=== PATIENT | female | born 1955 | race Caucasian/White ===

== ENCOUNTER → 2017-11-25 | Outpatient (CLI) | payer BC ==
--- NOTE | 2017-11-26 08:34 | MM ---
Reason for exam: screening (asymptomatic). Last mammogram was performed 2 years and 8 months ago. History: Patient is postmenopausal. Physical Findings: A clinical breast exam by your physician is recommended on an annual basis and results should be correlated with mammographic findings. MG Screening Mammo w CAD Bilateral CC and MLO view(s) were taken. Prior study comparison: March 16, 2015, bilateral MG screening mammo w CAD. December 15, 2012, bilateral digital screening mammo w/CAD. The breast tissue is heterogeneously dense. This may lower the sensitivity of mammography. No significant changes when compared with prior studies. ASSESSMENT: Negative, BI-RAD 1 RECOMMENDATION: Routine screening mammogram of both breasts in 1 year.
== END ==
LOC: RADMAMWWP 06:54
PROVIDERS: ATTEND Family Medicine
DX: Z12.31 Encounter for screening mammogram for malignant neoplasm of breast (principal)
CPT/HCPCS: 77067

== ENCOUNTER → 2017-12-23 | Outpatient (CLI) | payer BC ==
--- NOTE | 2017-12-23 19:04 | BD ---
EXAMINATION TYPE: Axial Bone Density DATE OF EXAM: 12/23/2017 COMPARISON: NONE CLINICAL HISTORY: 62-year-old female screening for osteoporosis Height: 63 Weight: 155.5 FRAX RISK QUESTIONS: Alcohol (3 or more units per day): no Family History (Parent hip fracture): no Glucocorticoids (More than 3mos): no (Ex: prednisone, prednisolone, methylprednisolone, dexamethasone, and hydrocortisone). History of Fracture in Adulthood: no Secondary Osteoporosis: 1. Type 1 Diabetes: no 2. Hyperthyroidism: no 3. Menopause before 45: no 4. Malnutrition: no 5. Chronic liver disease: no Rheumatoid Arthritis: no Current Tobacco Use: no RISK FACTORS HISTORY OF: Family History of Osteoporosis: no Active: yes Diet low in dairy products/other sources of calcium: yes Postmenopausal woman: age 36 hysterectomy Lost more than 2 inches in height since high school: no MEDICATIONS: x2 bp meds Thyroid Medications: Western Thyroid How Lon years Additional History: EXAM MEASUREMENTS: Bone mineral densitometry was performed using the [employer] System. Bone mineral density as measured about the Lumbar spine is: ----- L1-L4(G/cm2): 1.206 T Score Values are as follows: ----- L2: 0.0 ----- L3: 0.4 ----- L4: 0.5 ----- L1-L4: 0.2 Bone mineral density has: decreased -2.7 % since study of: 12.15.2012 Bone mineral density about the R hip (g/cm2): 0.861 Bone mineral density about the L hip (g/cm2): 0.883 T Score values are as follows: -----R Neck: -1.3 -----L Neck: -1.1 -----R Total: -1.0 -----L Total: -0.7 Bone mineral density has: decreased -3.3 % since study of: 12.15.2012 IMPRESSION: Osteopenia (T Score between -2.5 and -1). There is slightly increased risk of fracture and the patient may be considered for treatment. Re-Screen 2-5 years. NOTE: T-SCORE=SD OF THE YOUNG ADULT MEAN.
== END ==
LOC: RADBDWWP 10:27
PROVIDERS: ATTEND Family Medicine
DX: Z13.820 Encounter for screening for osteoporosis (principal); M85.80 Other specified disorders of bone density and structure, unspecified site
CPT/HCPCS: 77080

== ENCOUNTER → 2018-10-02 | Outpatient (CLI) | payer BC ==
--- NOTE | 2018-10-02 09:41 | CT ---
EXAMINATION TYPE: CT heart w calcium score DATE OF EXAM: 10/02/2018 COMPARISON: None. HISTORY: Screening for cardiovascular disorder. 213.9 CT DLP: 44.8 mGycm Automated exposure control for dose reduction was used. CT CALCIUM SCORING Coronary calcium is a marker for plaque (fatty deposits) in a blood vessel or atherosclerosis (harden ing of the arteries). The presence and amount of calcium detected in a coronary artery by the CT sca n, indicates the presence and amount of atherosclerotic plaque. These calcium deposits appear years before the development of heart disease symptoms such as chest pain and shortness of breath. A calcium score is computed for each of the coronary arteries based upon the volume and density of th e calcium deposits. This can be referred to as your calcified plaque burden. It does not correspond directly to the percentage of narrowing in the artery but does correlate with the severity of the un derlying coronary atherosclerosis. PROCEDURE TECHNIQUE - Prospective Gating was used. Slice thickness: 3mm. Density threshold (HU): 130, Pixel threshold: 3, Algorithm: discrete. RESULTS Region: LM Calcium Score ([place]): 0 Volume (mm3): 0 Mass (g): 0 Region: RCA Calcium Score ([place]): 68.1 Volume (mm3): 55.21 Mass (g): 18.4 Region: LAD Calcium Score ([place]): 2.21 Volume (mm3): 3.31 Mass (g): 1.1 Region: CX Calcium Score ([place]): 0 Volume (mm3): 0 Mass (g): 0 Region: PDA Calcium Score ([place]): 0 Volume (mm3): 0 Mass (g): 0 Total: Calcium Score ([place]): 70.31 Volume (mm3): 19.51 Mass (g): 58.53 TOTAL CALCIUM SCORE: 70 No suspicious incidental findings noted. IMPRESSION: Calcium Score: 11-100 Implication: Definite, at least mild atherosclerotic plaque Risk of Coronary Artery Disease: Mild or minimal coronary narrowings likely. CALCIUM SCORE IMPLICATION RISK OF C ORONARY ARTERY DISEASE 0 No identifiable plaque Very low, generally less than 5% 1-10 Minimal identifiable plaque Very unlikely, less than 10% 11-100 Definite, at least mild atherosclerotic plaque Mild or m inimal coronary narrowings likely 101-400 Definite, at least moderate atherosclerotic plaque Mild coronary ar luis antonio disease highly likely, significant narrowing possible 401 or Higher Extensive atherosclerotic plaque High lik elihood of at least one significant coronary narrowing
== END ==
LOC: RADCTMAIN 08:46
PROVIDERS: ATTEND Family Medicine
DX: E78.2 Mixed hyperlipidemia (principal)
CPT/HCPCS: 75571

== ENCOUNTER 2020-05-16 17:03 | Observation (INO) | payer BC, MEDICARE ==
[2020-05-16] MEDS ORDERED: hydrALAZINE HCL 20 MG/ML 1 ML VIAL IVP STA (18:40)
--- NOTE | 2020-05-16 18:49 | ED ---
General Adult HPI - General Chief complaint: Recheck/Abnormal Lab/Rx Stated complaint: High BP Time Seen by Provider: 05/16/20 17:05 Source: patient, RN notes reviewed, old records reviewed Mode of arrival: wheelchair Limitations: no limitations - History of Present Illness Initial comments: This is a 64-year-old female in the emergency department complaining of high blood pressure and some chest pressure as well as some right-sided jaw and ear pain. Patient states this is similar chest pressure that she's been getting on and off for years. Patient states she currently is experiencing chest pressure. Patient denies any difficulty breathing shortness of breath per patient denies any headache patient denies any blurred vision. Patient blood pressure cuff at home said her blood pressure was elevated but also said she might have an irregular heartbeat she called her primary medical care doctor and they recommended she come to the emergency department. Patient denies any recent fever chills or cough per patient denies any abdominal pain patient denies nausea vomiting or diarrhea per patient denies any swelling to legs or calf tenderness. - Related Data Home Medications Medication Instructions Recorded Confirmed Losartan/Hydrochlorothiazide 1 tab PO DAILY 05/16/20 05/16/20 [Losartan-Hctz 100-25 mg Tab] Thyroid,Pork [[place] Thyroid] 15 mg PO HS 05/16/20 05/16/20 Thyroid,Pork [[place] Thyroid] 30 mg PO DAILY 05/16/20 05/16/20 Allergies Allergy/AdvReac Type Severity Reaction Status Date / Time No Known Allergies Allergy Verified 05/16/20 19:41 Review of Systems ROS Statement: Those systems with pertinent positive or pertinent negative responses have been documented in the HPI. ROS Other: All systems not noted in ROS Statement are negative. Past Medical History Past Medical History: Hypertension History of Any Multi-Drug Resistant Organisms: None Reported Past Surgical History: Hysterectomy Past Psychological History: No Psychological Hx Reported Smoking Status: Never smoker Past Alcohol Use History: Occasional Past Drug Use History: None Reported General Exam - General Exam Comments Initial Comments: GENERAL: Patient is well-developed and well-nourished. Patient is nontoxic and well- hydrated and is in mild distress. ENT: Neck is soft and supple. No significant lymphadenopathy is noted. Oropharynx is clear. Moist mucous membranes. Neck has full range of motion without eliciting any pain. EYES: The sclera were anicteric and conjunctiva were pink and moist. Extraocular movements were intact and pupils were equal round and reactive to light. Eyelids were unremarkable. PULMONARY: Unlabored respirations. Good breath sounds bilaterally. No audible rales rhonchi or wheezing was noted. CARDIOVASCULAR: There is a regular rate and rhythm without any murmurs gallops or rubs. ABDOMEN: Soft and nontender with normal bowel sounds. SKIN: Skin is clear with no lesions or rashes and otherwise unremarkable. NEUROLOGIC: Patient is alert and oriented x3. Cranial nerves II through XII are grossly i ntact. Motor and sensory are also intact. Normal speech, volume and content. Symmetrical smile. MUSCULOSKELETAL: Normal extremities with adequate strength and full range of motion. No lower extremity swelling or edema. No calf tenderness. LYMPHATICS: No significant lymphadenopathy is noted PSYCHIATRIC: Normal psychiatric evaluation. Limitations: no limitations Course Vital Signs 05/16/20 17:04 Temperature 97.9 F Pulse Rate 76 Respiratory 18 Rate Blood Pressure 167/94 O2 Sat by Pulse 97 Oximetry Medical Decision Making - Medical Decision Making EKG shows normal sinus rhythm at 64 bpm MD interval 170 QRS is 72 QT interval 366 QTC is 377. Patient's EKG shows no ST segment elevation or depression. Chest x-ray shows no acute abnormality. I went back into the room to reevaluate the patient and she no longer had any chest pain but she was concerned because of the significant family history she had slight admitted the patient consult cardiology [facility] Data Result diagrams: 05/16/20 18:53 05/16/20 18:53 Lab Results 05/16/20 05/16/20 05/16/20 Range/Units 18:53 18:53 18:53 WBC 9.2 (3.8-10.6) k/uL RBC 4.83 (3.80-5.40) m/uL Hgb 14.1 (11.4-16.0) gm/dL Hct 41.8 (34.0-46.0) % MCV 86.5 (80.0-100.0) fL MCH 29.2 (25.0-35.0) pg MCHC 33.7 (31.0-37.0) g/dL RDW 12.9 (11.5-15.5) % Plt Count 275 (150-450) k/uL MPV 7.8 Neutrophils % 59 % Lymphocytes % 34 % Monocytes % 3 % Eosinophils % 3 % Basophils % 1 % Neutrophils # 5.4 (1.3-7.7) k/uL Lymphocytes # 3.1 (1.0-4.8) k/uL Monocytes # 0.3 (0-1.0) k/uL Eosinophils # 0.2 (0-0.7) k/uL Basophils # 0.1 (0-0.2) k/uL PT 10.2 (9.0-12.0) sec INR 1.0 (<1.2) APTT 22.3 (22.0-30.0) sec Sodium 138 (137-145) mmol/L Potassium 3.1 L (3.5-5.1) mmol/L Chloride 101 (98-107) mmol/L Carbon Dioxide 28 (22-30) mmol/L Anion Gap 9 mmol/L BUN 18 H (7-17) mg/dL Creatinine 0.66 (0.52-1.04) mg/dL Est GFR (CKD-EPI)AfAm >90 (>60 ml/min/1.73 sqM) Est GFR (CKD-EPI)NonAf >90 (>60 ml/min/1.73 sqM) Glucose 111 H (74-99) mg/dL Calcium 10.0 (8.4-10.2) mg/dL Magnesium 1.8 (1.6-2.3) mg/dL Total Bilirubin 0.5 (0.2-1.3) mg/dL AST 31 (14-36) U/L ALT 32 (4-34) U/L Alkaline Phosphatase 61 (38-126) U/L Troponin I (0.000-0.034) ng/mL Total Protein 7.3 (6.3-8.2) g/dL Albumin 4.7 (3.5-5.0) g/dL 05/16/20 Range/Units 18:53 WBC (3.8-10.6) k/uL RBC (3.80-5.40) m/uL Hgb (11.4-16.0) gm/dL Hct (34.0-46.0) % MCV (80.0-100.0) fL MCH (25.0-35.0) pg MCHC (31.0-37.0) g/dL RDW (11.5-15.5) % Plt Count (150-450) k/uL MPV Neutrophils % % Lymphocytes % % Monocytes % % Eosinophils % % Basophils % % Neutrophils # (1.3-7.7) k/uL Lymphocytes # (1.0-4.8) k/uL Monocytes # (0-1.0) k/uL Eosinophils # (0-0.7) k/uL Basophils # (0-0.2) k/uL PT (9.0-12.0) sec INR (<1.2) APTT (22.0-30.0) sec Sodium (137-145) mmol/L Potassium (3.5-5.1) mmol/L Chloride (98-107) mmol/L Carbon Dioxide (22-30) mmol/L Anion Gap mmol/L BUN (7-17) mg/dL Creatinine (0.52-1.04) mg/dL Est GFR (CKD-EPI)AfAm (>60 ml/min/1.73 sqM) Est GFR (CKD-EPI)NonAf (>60 ml/min/1.73 sqM) Glucose (74-99) mg/dL Calcium (8.4-10.2) mg/dL Magnesium (1.6-2.3) mg/dL Total Bilirubin (0.2-1.3) mg/dL AST (14-36) U/L ALT (4-34) U/L Alkaline Phosphatase (38-126) U/L Troponin I <0.012 (0.000-0.034) ng/mL Total Protein (6.3-8.2) g/dL Albumin (3.5-5.0) g/dL Disposition Clinical Impression: Chest pain, Hypertensive urgency Disposition: ADMITTED IP TO THIS HOSP Referrals: Gayle Sargent DO [Primary Care Provider] - 1-2 days Time of Disposition: 19:50
[2020-05-16 19:05] LABS: Basophils # (A) 0.1 k/uL (0-0.2); Basophils % (A) 1 %; Eosinophils # (A) 0.2 k/uL (0-0.7); Eosinophils % (A) 3 %; HCT 41.8 % (34.0-46.0); HGB 14.1 gm/dL (11.4-16.0); Lymphocytes # (A) 3.1 k/uL (1.0-4.8); Lymphocytes % (A) 34 %; MCH 29.2 pg (25.0-35.0); MCHC 33.7 g/dL (31.0-37.0); MCV 86.5 fL (80.0-100.0); Mean Platelet Volume 7.8; Monocytes # (A) 0.3 k/uL (0-1.0); Monocytes % (A) 3 %; Neutrophils # (A) 5.4 k/uL (1.3-7.7); Neutrophils % (A) 59 %; Platelet Count 275 k/uL (150-450); RBC 4.83 m/uL (3.80-5.40); RDW 12.9 % (11.5-15.5); WBC 9.2 k/uL (3.8-10.6)
[2020-05-16 19:12] LABS: Partial Thromboplastin Time 22.3 sec (22.0-30.0); Prothrombin Time 10.2 sec (9.0-12.0)
--- NOTE | 2020-05-16 19:18 | XR ---
EXAMINATION TYPE: XR chest 2V DATE OF EXAM: 05/16/2020 COMPARISON: 03/27/2013. HISTORY: Chest pain. Elevated blood pressure for one week. TECHNIQUE: Frontal and lateral views of the chest are obtained. FINDINGS: There is no focal air space opacity, pleural effusion, or pneumothorax seen. The cardiac silhouette size is within normal limits. The osseous structures are intact. There is a nodule in the right upper lobe laterally measuring 2 cm and is new compared to his x-rays from 03/27/2013. This could be superimposition artifact. Follow-up chest x-ray in 2-4 weeks is recomme nded. IMPRESSION: No acute cardiopulmonary process. Follow-up as noted above.
[2020-05-16 19:23] LABS: ALT 32 U/L (4-34); AST 31 U/L (14-36); African American GFR (CKD) >90 (>60 ml/min/1.73 sqM); Albumin 4.7 g/dL (3.5-5.0); Alkaline Phosphatase 61 U/L (38-126); Anion Gap 9 mmol/L; Blood Urea Nitrogen 18 mg/dL (7-17); Carbon Dioxide 28 mmol/L (22-30); Chloride 101 mmol/L (98-107); Glucose 111 mg/dL (74-99); Magnesium 1.8 mg/dL (1.6-2.3); Non-African American GFR(CKD) >90 (>60 ml/min/1.73 sqM); Potassium 3.1 mmol/L (3.5-5.1); Sodium 138 mmol/L (137-145); Total Bilirubin 0.5 mg/dL (0.2-1.3); Total Protein 7.3 g/dL (6.3-8.2)
[2020-05-16] MEDS ORDERED: ASPIRIN 81 MG PO STA (19:46)
[2020-05-16] MEDS ORDERED: NITROGLYCERIN OINT 1 INCH/GM PACKET TOPICAL STA (19:47)
[2020-05-16] MEDS ORDERED: NITROGLYCERIN SL TABS 0.4 MG TAB SUBLINGUAL PRN (19:47)
[2020-05-16] MEDS: NITROGLYCERIN OINT 1 INCH/GM PACKET TOPICAL SCH (22:43)
[2020-05-17 03:07] LABS: Cholesterol 306 mg/dL (<200); HDL Cholesterol 77 mg/dL (40-60); LDL Cholesterol,Calculated 206 mg/dL (0-99); Triglycerides 117 mg/dL (<150)
[2020-05-17] MEDS: NITROGLYCERIN OINT 1 INCH/GM PACKET TOPICAL SCH (04:04)
[2020-05-17] MEDS ORDERED: Potassium Replacement Protocol 1 EACH MISC MISCELLANE PRN (07:07)
[2020-05-17 07:27] VITALS: RESP 16
[2020-05-17] MEDS: POTASSIUM CHLORIDE ER 20 MEQ TAB.ER PO SCH ×2 (08:48→09:27)
[2020-05-17] MEDS: ATORVASTATIN 80 MG TAB PO SCH ×2 (08:49→08:55)
[2020-05-17] MEDS ORDERED: THYROID, PORK 30 MG TAB PO SCH ×2 (09:00→21:00)
[2020-05-17] MEDS ORDERED: ASPIRIN 81 MG PO SCH (09:00)
[2020-05-17] MEDS ORDERED: LOSARTAN-HCTZ 50-12.5 MG 1 EACH TAB PO SCH (09:00)
[2020-05-17] MEDS ORDERED: ASPIRIN 325 MG TAB PO SCH (09:00)
--- NOTE | 2020-05-17 11:44 | P.CRDCN ---
History of Present Illness History of present illness: HISTORY OF PRESENTING ILLNESS This is a pleasant 64-year-old patient female past medical history significant for former smoker (used 2PPD x 25 years), hypertension. She follows in the office with Dr. Singletary. We have been asked to see in consultation for chest pressure. Patient is seen and examined at bed side, walking in room, no apparent distress. Patient states yesterday at 3 PM she felt "shaky", checked her blood pressure and it was 180s / 90s. She called her primary care provider who told her to go to the emergency department. She also had right-sided chest pressure, middle back pressure, right ear pressure. Her chest pressure is nonradiating, not associated with exertion, nothing made the pressure worse or better and subsided on her own. She's had this chest pressure before and felt similar. last week patient's and her blood pressure was 150/90, but improved after she took her antihypertensives. She checks her blood pressure at home and usually runs 130s/90s. She denies chest pain, palpitations, shortness of breath, lower extremity edema, fatigue, weakness, lightheadedness, syncope. She denies history of diabetes, [place], or stroke. She denies tobacco use, alcohol, or illict drug use. She denies symptoms of orthopnea or PND. Patients states she is compliant with medication. Laboratory data reviewed, troponins negative 3, triglycerides 117, cholesterol 306, LDL 206, HDL 77 WBC 9.2, hemoglobin 14.1 platelets 275, sodium 138, potassium 3.1, renal function stable creatinine 0.66 Vital signs blood pressure 105/70, heart rate 85, oxygen saturations 96 on room air, afebrile Current home cardiac medications include losartanhydrochlorothiazide 97558- 1 tablet daily. DIAGNOSTICS EKG reveals normal sinus rhythm heart rate 64, T wave inversion in lead III. . No prior EKG to compare Last Cardiac Catheterization 04/06/2013normal filling pressures, no significant obstructive disease Echo 07/03/2018EF 55% no evidence of any diastolic dysfunction. No significant pulmonary hypertension Stress echo 07/28/2018EKGs changes of ST segment depressions similar on 2017. No ischemia on stress echo Telemetry tracings indicate sinus mechanism Chest xray no acute cardiopulmonary process, nodule in the right upper lobe laterally- new compared to xrays in 2014. Could be superimposition artifact- follow up chest xray in 2-4weeks is recommended . REVIEW OF SYSTEMS At the time of my exam: CONSTITUTIONAL: Denies fever or chills. CARDIOVASCULAR: +chest pressure Denies chest pain, shortness of breath, orthopnea, PND or palpitations. RESPIRATORY: Denies cough. GASTROINTESTINAL: Denies abdominal pain, diarrhea, constipation, nausea or vomiting. MUSCULOSKELETAL: +mid back pressure Denies myalgias. NEUROLOGIC: + right ear pressure Denies numbness, tingling, headacbe or weakness. ENDOCRINE: Denies fatigue, weight change, polydipsia or polyurina. GENITOURINARY: Denies burning, hematuria or urgency with micturation. HEMATOLOGIC: Denies history of anemia or bleeding. PHYSICAL EXAMINATION CONSTITUTIONAL: No apparent distress. HEENT: Head is normocephalic. Pupils are equal, round. Sclerae anicteric. Mucous membranes of the mouth are moist. No JVD. No carotid bruit. CHEST EXAMINATION: Lungs are clear to auscultation. No chest wall tenderness is noted on palpation or with deep breathing. HEART EXAMINATION: Regular rate and rhythm. S1, S2 heard. No murmurs, gallops or rub. ABDOMEN: Soft, nontender. Positive bowel sounds. EXTREMITIES: 2+ peripheral pulses, no lower extremity edema and no calf tenderness. SKIN: intact, no bruises NEUROLOGIC EXAMINATION: Patient is awake, alert and oriented x3. ASSESSMENT -Hypertension -Hyperlipidemia PLAN -2D echo ordered and stress echo ordered- if testing with no acute changes, ok for patient to bed discharged and follow up with Dr. Singletary. -Continue losartan 25mg daily -Start aspirin 81mg daily -Start statin- atorvastatin 80mg daily Nurse Practitioner note has been reviewed, I agree with a documented findings and plan of care. Patient was seen and examined. Past Medical History Past Medical History: Hypertension History of Any Multi-Drug Resistant Organisms: None Reported Past Surgical History: Hysterectomy Past Psychological History: No Psychological Hx Reported Smoking Status: Never smoker Past Alcohol Use History: Occasional Past Drug Use History: None Reported Medications and Allergies Home Medications Medication Instructions Recorded Confirmed Type Losartan/Hydrochlorothiazide 1 tab PO DAILY 05/16/20 05/16/20 History [Losartan-Hctz 100-25 mg Tab] Thyroid,Pork [[place] Thyroid] 15 mg PO HS 05/16/20 05/16/20 History Thyroid,Pork [[place] Thyroid] 30 mg PO DAILY 05/16/20 05/16/20 History Allergies Allergy/AdvReac Type Severity Reaction Status Date / Time No Known Allergies Allergy Verified 05/16/20 19:41 Physical Exam Vitals: Vital Signs Temp Pulse Pulse Resp BP BP Pulse Ox 05/17/20 09:11 96 05/17/20 08:00 16 05/17/20 07:00 97.9 F 85 16 105/70 96 05/17/20 03:30 98.0 F 78 120/63 96 05/16/20 22:27 98.2 F 77 159/82 94 L 05/16/20 21:18 81 14 159/90 99 05/16/20 21:00 67 16 147/81 96 05/16/20 20:00 76 14 147/74 96 05/16/20 19:00 190/94 05/16/20 17:04 97.9 F 76 18 167/94 97 Intake and Output 05/16/20 05/17/20 05/17/20 22:59 06:59 14:59 Other: Voiding Method Toilet Toilet # Voids 0 1 Weight 65.771 kg Results 05/16/20 18:53 05/16/20 18:53 Cardiac Enzymes 05/16/20 05/16/20 05/16/20 Range/Units 18:53 18:53 22:33 AST 31 (14-36) U/L Troponin I <0.012 <0.012 (0.000-0.034) ng/mL 05/17/20 Range/Units 00:08 AST (14-36) U/L Troponin I <0.012 (0.000-0.034) ng/mL Coagulation 05/16/20 Range/Units 18:53 PT 10.2 (9.0-12.0) sec APTT 22.3 (22.0-30.0) sec Lipids 05/17/20 Range/Units 00:08 Triglycerides 117 (<150) mg/dL Cholesterol 306 H (<200) mg/dL HDL Cholesterol 77 H (40-60) mg/dL CBC 05/16/20 Range/Units 18:53 WBC 9.2 (3.8-10.6) k/uL RBC 4.83 (3.80-5.40) m/uL Hgb 14.1 (11.4-16.0) gm/dL Hct 41.8 (34.0-46.0) % Plt Count 275 (150-450) k/uL Comprehensive Metabolic Panel 05/16/20 Range/Units 18:53 Sodium 138 (137-145) mmol/L Potassium 3.1 L (3.5-5.1) mmol/L Chloride 101 (98-107) mmol/L Carbon Dioxide 28 (22-30) mmol/L BUN 18 H (7-17) mg/dL Creatinine 0.66 (0.52-1.04) mg/dL Glucose 111 H (74-99) mg/dL Calcium 10.0 (8.4-10.2) mg/dL AST 31 (14-36) U/L ALT 32 (4-34) U/L Alkaline Phosphatase 61 (38-126) U/L Total Protein 7.3 (6.3-8.2) g/dL Albumin 4.7 (3.5-5.0) g/dL Current Medications Generic Name Dose Route Start Last Admin Trade Name Freq PRN Reason Stop Dose Admin Aspirin 81 mg 05/17/20 09:00 05/17/20 08:49 Aspirin 81 Mg PO 81 mg DAILY ARACELIS Administration Atorvastatin Calcium 80 mg 05/17/20 09:00 05/17/20 08:55 Atorvastatin 80 Mg Tab PO 80 mg DAILY ARACELIS Administration Losartan Potassium 25 mg 05/18/20 09:00 Losartan 25 Mg Tab PO DAILY ARACELIS Miscellaneous Information 1 each 05/17/20 07:07 Potassium Replacement Protocol 1 Each Misc MISCELLANE DAILY PRN Per Protocol Protocol Nitroglycerin 0.4 mg 05/16/20 19:47 Nitroglycerin Sl Tabs 0.4 Mg Tab SUBLINGUAL Q5M PRN Chest Pain Thyroid 15 mg 05/17/20 21:00 Thyroid, Pork 30 Mg Tab PO HS ARACELIS Thyroid 30 mg 05/17/20 09:00 05/17/20 09:28 Thyroid, Pork 30 Mg Tab PO 30 mg DAILY ARACELIS Administration Intake and Output 05/16/20 05/17/20 05/17/20 22:59 06:59 14:59 Other: Voiding Method Toilet Toilet # Voids 0 1 Weight 65.771 kg 05/16/20 18:53 05/16/20 18:53
--- NOTE | 2020-05-17 12:29 | P.DS ---
Providers Date of admission: 05/16/20 19:49 Attending physician: Memo Bolanos Consults: 05/16/20 19:47 Consult Physician Urgent Consulting Provider: [facility] Consult Reason/Comments: Chest pain, hypertensive urgency Do you want consulting provider notified?: Yes Primary care physician: Gayle Sargent [facility] Course: Please refer to my HPI for further details Plan - Discharge Summary New Discharge Prescriptions: New Aspirin 81 mg PO DAILY chew Atorvastatin [Lipitor] 80 mg PO DAILY 60 Days #60 tab Losartan [Cozaar] 50 mg PO DAILY #30 tab Discontinued Losartan/Hydrochlorothiazide [Losartan-Hctz 100-25 mg Tab] 1 tab PO DAILY No Action Thyroid,Pork [[place] Thyroid] 30 mg PO DAILY Thyroid,Pork [[place] Thyroid] 15 mg PO HS Discharge Medication List Thyroid,Pork [[place] Thyroid] 15 mg PO HS 05/16/20 [History] Thyroid,Pork [[place] Thyroid] 30 mg PO DAILY 05/16/20 [History] Aspirin 81 mg PO DAILY chew 05/17/20 [Rx] Atorvastatin [Lipitor] 80 mg PO DAILY 60 Days #60 tab 05/17/20 [Rx] Losartan [Cozaar] 50 mg PO DAILY #30 tab 05/17/20 [Rx] Follow up Appointment(s)/Referral(s): Nicholas Singletary MD [STAFF PHYSICIAN] - 2 Weeks Gayel Sargent DO [Primary Care Provider] - 1-2 days Discharge Disposition: HOME SELF-CARE
--- NOTE | 2020-05-17 12:29 | P.HPIM ---
History of Present Illness 62-year-old the female came in with complaints of elevated blood pressure and mild the chest pain in the right side of the chest pressure like sensation nonradiating associated shortness associated with lasted for few minutes. Patie nt denied any fever chills patient denied any shortness of breath associated with that. Patient had troponins which were negative and patient EKG showed sinus rhythm with some T-wave inversions in lead 3 because of which patient was admitted for to rule out a concurrent syndromes. Cardiology evaluated the patient patient will undergo stress test was admitted and patient came in her blood pressure was elevated to 180/90. Patient was recently seen by PCP at the PCPs visit her blood pressure is elevated because of which her blood pressure medication dose was increased.. Patient is presently on 100 mg of losartan and 25 mg of hydrochlorothiazide. Patient is also found to have highly elevated LDL of 200. Patient blood pressure is low today with the blood pressure of 105/ 70. Review of Systems REVIEW OF SYSTEMS: CONSTITUTIONAL: No fever, no malaise, no fatigue. HEENT: No recent visual problems or hearing problems. Denied any sore throat. CARDIOVASCULAR: No orthopnea, PND, no palpitations, no syncope. PULMONARY: No shortness of breath, no cough, no hemoptysis. GASTROINTESTINAL: No diarrhea, no nausea, no vomiting, no abdominal pain. NEUROLOGICAL: No headaches, no weakness, no numbness. HEMATOLOGICAL: Denies any bleeding or petechiae. GENITOURINARY: Denies any burning micturition, frequency, or urgency. MUSCULOSKELETAL/RHEUMATOLOGICAL: Denies any joint pain, swelling, or any muscle pain. ENDOCRINE: Denies any polyuria or polydipsia. The rest of the 14-point review of systems is negative. Past Medical History Past Medical History: Hypertension History of Any Multi-Drug Resistant Organisms: None Reported Past Surgical History: Hysterectomy Past Psychological History: No Psychological Hx Reported Smoking Status: Never smoker Past Alcohol Use History: Occasional Past Drug Use History: None Reported Medications and Allergies Home Medications Medication Instructions Recorded Confirmed Type Thyroid,Pork [[place] Thyroid] 15 mg PO HS 05/16/20 05/16/20 History Thyroid,Pork [[place] Thyroid] 30 mg PO DAILY 05/16/20 05/16/20 History Aspirin 81 mg PO DAILY chew 05/17/20 Rx Atorvastatin [Lipitor] 80 mg PO DAILY 60 Days #60 tab 05/17/20 Rx Losartan [Cozaar] 50 mg PO DAILY #30 tab 05/17/20 Rx Allergies Allergy/AdvReac Type Severity Reaction Status Date / Time No Known Allergies Allergy Verified 05/16/20 19:41 Physical Exam Vitals: Vital Signs Temp Pulse Pulse Resp BP BP Pulse Ox 05/17/20 09:11 96 05/17/20 08:00 16 05/17/20 07:00 97.9 F 85 16 105/70 96 05/17/20 03:30 98.0 F 78 120/63 96 05/16/20 22:27 98.2 F 77 159/82 94 L 05/16/20 21:18 81 14 159/90 99 05/16/20 21:00 67 16 147/81 96 05/16/20 20:00 76 14 147/74 96 05/16/20 19:00 190/94 05/16/20 17:04 97.9 F 76 18 167/94 97 Intake and Output 05/16/20 05/17/20 05/17/20 22:59 06:59 14:59 Other: Voiding Method Toilet Toilet # Voids 0 1 Weight 65.771 kg PHYSICAL EXAMINATION: GENERAL: The patient is alert and oriented x3, not in any acute distress. Well developed, well nourished. HEENT: Pupils are round and equally reacting to light. EOMI. No scleral icterus. No conjunctival pallor. Normocephalic, atraumatic. No pharyngeal erythema. No thyromegaly. CARDIOVASCULAR: S1 and S2 present. No murmurs, rubs, or gallops. PULMONARY: Chest is clear to auscultation, no wheezing or crackles. ABDOMEN: Soft, nontender, nondistended, normoactive bowel sounds. No palpable organomegaly. MUSCULOSKELETAL: No joint swelling or deformity. EXTREMITIES: No cyanosis, clubbing, or pedal edema. NEUROLOGICAL: Gross neurological examination did not reveal any focal deficits. SKIN: No rashes. Results CBC & Chem 7: 05/16/20 18:53 05/17/20 11:47 Labs: Abnormal Lab Results - Last 24 Hours (Table) 05/16/20 05/17/20 Range/Units 18:53 00:08 Potassium 3.1 L (3.5-5.1) mmol/L BUN 18 H (7-17) mg/dL Glucose 111 H (74-99) mg/dL Cholesterol 306 H (<200) mg/dL LDL Cholesterol, Calc 206 H (0-99) mg/dL HDL Cholesterol 77 H (40-60) mg/dL Thrombosis Risk Factor Assmnt - Choose All That Apply Each Risk Factor Represents 2 Points: Age 61-74 years Thrombosis Risk Factor Assessment Total Risk Factor Score: 2 Thrombosis Risk Factor Assessment Level: Low Risk Assessment and Plan Plan: -Chest pain: Rule out acute current syndromes patient will undergo stress test if that's negative patient will be discharged today -Essential hypertension: Her blood pressure is elevated because of her inappropriate measurement. I counseled her regarding appropriate way to measure the blood pressure. Patient was asked to check the blood pressure 2 or 3 times a day tried on all the readings and take it to PCP's office.Her blood pressure is actually on the low side because of which am actually getting rid of her thighs. Patient is bit hypokalemic because of that is hydrochlorothiazide which was discontinued patient will be discharged on 50 mg of losartan. Since fluctuation blood pressure is secondary to her stress patient admits to significant stress at home. -Hyperlipidemia patient will be discharged on a statin patient is being discharged on aspirin as well.
--- NOTE | 2020-05-17 13:00 | ECHOF ---
Referral Reason:cp MEASUREMENTS -------- HEIGHT: 162.6 cm WEIGHT: 65.8 kg BP: RVIDd: 3.5 cm (< 3.3) IVSd: 1.3 cm (0.6 - 1.1) LVIDd: 3.8 cm (3.9 - 5.3) LVPWd: 1.2 cm (0.6 - 1.1) IVSs: 1.6 cm LVIDs: 2.1 cm LVPWs: 1.9 cm LAESV Index (A-L): 21.28 ml/m Ao Diam: 3.0 cm (2.0 - 3.7) AV Cusp: 1.6 cm (1.5 - 2.6) MV EXCURSION: 20.130 mm (> 18.000) MV EF SLOPE: 75 mm/s (70 - 150) EPSS: 0.3 cm MV E Emir: 0.81 m/s MV DecT: 185 ms MV A Emir: 1.05 m/s MV E/A Ratio: 0.77 RAP: 5.00 mmHg RVSP: 18.87 mmHg FINDINGS -------- Sinus rhythm. This was a technically adequate study. The left ventricular size is normal. There is mild concentric left ventricular hypertrophy. Overa ll left ventricular systolic function is normal with, an EF between 55 - 60 %. The diastolic fillin g pattern is normal for the age of the patient 10.79. The right ventricle is mildly enlarged. Normal LA size by volume 22+/-6 ml/m2. The right atrial size is normal. Interatrial and interventricular septum intact. The aortic valve is trileaflet, and appears structurally normal. No aortic stenosis or regurgitation. The mitral valve is normal. There is trace to mild mitral regurgitation. The tricuspid valve appears structurally normal. Mild tricuspid regurgitation present. Right vent ricular systolic pressure is normal at < 35 mmHg. The right ventricular systolic pressure, as measu red by Doppler, is 18.87mmHg. There is no pulmonic regurgitation present. The aortic root size is normal. The inferior vena cava is mildly dilated. There is no pericardial effusion. CONCLUSIONS -------- 1. There is mild concentric left ventricular hypertrophy. 2. Overall left ventricular systolic function is normal with, an EF between 55 - 60 %. 3. The right ventricle is mildly enlarged. 4. Normal LA size by volume 22+/-6 ml/m2. 5. The aortic valve is trileaflet, and appears structurally normal. No aortic stenosis or regurgitati on. 6. There is trace to mild mitral regurgitation. 7. Mild tricuspid regurgitation present. 8. The inferior vena cava is mildly dilated. EARLY EDUCATION TEACHER: Piper Reilly RDCS
--- NOTE | 2020-05-17 15:18 | ECHOS ---
STRESS ECHOCARDIOGRAM INDICATIONS: Hypertension, chest pressure. MEDICATIONS: BASELINE HEART RATE: 91 BASELINE BLOOD PRESSURE: 138/88 MAXIMUM HEART RATE: 175 MAXIMUM BLOOD PRESSURE: 213/97 85% MPHR: 132 100% MPHR: 155 METS: 7.3 MAXIMUM STAGE REACHED: II TOTAL EXERCISE TIME: 6 minutes 9 seconds CLINICAL INFORMATION: Baseline rhythm is sinus mechanism, rate of 91, normal axis and intervals nonspecific ST-T wave changes. Baseline blood pressure 138/88 mmHg. Patient exercised on Doug protocol for 6 minutes 9 seconds reaching peak rate of 175 beats per minute which is equal to 100% maximum predicted heart rate. Peak blood pressure 213/97 mmHg. Test was terminated secondary to fatigue. There was no chest pain. Electrocardiograph monitoring revealed no evidence of diagnostic ischemic ST deviation. Baseline echocardiogram revealed normal wall motion. At peak exercise, there was normal wall motion augmentation with no hypokinesis or dyskinesis. CONCLUSION: 1. Average exercise tolerance with normal electrocardiographic response to exercise. 2. Normal stress echocardiogram with no evidence of stress-induced ischemia. MMODL / IJN: [id number] /
[2020-05-17 15:46] VITALS: BP 128/73; PULSE 80; TEMP 98.1
[2020-05-18] MEDS ORDERED: LOSARTAN 25 MG TAB PO SCH (09:00)
== END 2020-05-17 15:45 | disposition home or self-care (01) ==
LOC: EC 17:03 → 6NMEDSUR 19:49
PROVIDERS: ADMIT Hospitalist; ATTEND Hospitalist
DX: R07.89 Other chest pain (principal); I10 Essential (primary) hypertension; E87.6 Hypokalemia; E78.5 Hyperlipidemia, unspecified; R91.1 Solitary pulmonary nodule; R03.1 Nonspecific low blood-pressure reading; Z79.890 Hormone replacement therapy; Z79.899 Other long term (current) drug therapy; Z90.710 Acquired absence of both cervix and uterus; Z87.891 Personal history of nicotine dependence; Z82.49 Family history of ischemic heart disease and other diseases of the circulatory system; Z20.822 Contact with and (suspected) exposure to COVID-19
CPT/HCPCS: 93005 ×2; 96374; 99285; 36415; 94760; 93306; 93351; 84439; 80061; 80053; 84443; 83735; 84132; 84484 ×2; 85025; 85610; 85730; 87635; 71046; G0378 ×2; J0360

== ENCOUNTER → 2021-02-17 | Outpatient (CLI) | payer MEDICARE | END | disposition home or self-care (01) | LOC: LABWHC1 11:10 | PROVIDERS: ATTEND Pediatrics | DX: Z01.818 Encounter for other preprocedural examination (principal); R00.2 Palpitations | CPT/HCPCS: 93005 ==